=== PATIENT | male | born 1970 | race Caucasian/White ===

== ENCOUNTER 2018-07-25 22:25 | Emergency (ER) | payer SELFPAY ==
[2018-07-25 22:39] VITALS: RESP 18; TEMP 97; O2SAT 97
[2018-07-25 22:42] VITALS: BP 205/125; PULSE 96
== END 2018-07-25 22:50 | DRG 897 ==
LOC: ED 22:25
DX: F15.10 Other stimulant abuse, uncomplicated (principal)
CPT/HCPCS: 99282